=== PATIENT | male | born 1985 | race Caucasian/White ===

== ENCOUNTER 2018-11-01 08:17 | Emergency (ER) | payer OTHER ==
[~2018-11-01] VITALS: Ht 172.7 cm; Wt 65.8 kg
[2018-11-01] MEDS ORDERED: ULTRAM 50MG TAB50 MG PO (09:12)
[2018-11-01] MEDS ORDERED: NORCO 5-325 TA1 EACH PO (09:24)
[2018-11-01 10:14] VITALS: BP 121/78
== END 2018-11-01 10:15 | disposition home or self-care (01) ==
LOC: M.ERS 08:17
DX: S20.222A Contusion of left back wall of thorax, initial encounter (principal); S20.212A Contusion of left front wall of thorax, initial encounter; W00.1XXA Fall from stairs and steps due to ice and snow, initial encounter; Y93.89 Activity, other specified; Y92.89 Other specified places as the place of occurrence of the external cause; Y99.8 Other external cause status